=== PATIENT | male | born 1965 | race Hispanic/Latino ===

== ENCOUNTER 2022-01-20 08:50 | Outpatient (CLI) | payer OTHER ==
[2022-01-20 09:36] LABS: Hemoglobin 14.2 g/dL (13.5-17.5); Mean Corpuscular HGB CONC 33.2 g/dL (32.0-36.0); Mean Corpuscular Volume 90.3 fl (81.2-95.1); Mean Platelet Volume 9.4 fl (7.4-10.4); Platelet Count 321 10x3/uL (150-450); RBC Distribution Width 12.3 % (11.5-14.5); Red Blood Cell (RBC) Count 4.74 10x6/uL (4.32-5.72); White Blood Cell (WBC) Count 5.4 10x3/uL (3.5-10.5)
[2022-01-20 09:52] LABS: Anion Gap 12 mmol/L (10-20); BUN (Urea Nitrogen) 19 mg/dL (8.4-25.7); Calc. Creatinine Clearance 0 mL/min (70-130); Calcium 9.7 mg/dL (7.8-10.44); Carbon Dioxide 27 mmol/L (22-29); Chloride 103 mmol/L (98-107); Glucose 106 mg/dL (70-105); Potassium 4.4 mmol/L (3.5-5.1); Sodium 138 mmol/L (136-145)
[2022-01-20 20:47] LABS: SARS-CoV-2 PCR by NAA Not Detected (NotDetected)
== END 2022-01-20 08:51 | disposition home or self-care (01) ==
LOC: LABBT 08:50
PROVIDERS: ATTEND Urology
DX: Z01.818 Encounter for other preprocedural examination (principal); N40.1 Benign prostatic hyperplasia with lower urinary tract symptoms; Z20.822 Contact with and (suspected) exposure to COVID-19
CPT/HCPCS: 80048; 85027; 93005; 93010; U0003; U0005

== ENCOUNTER 2022-01-25 06:44 | Day surgery (SDC) | payer OTHER ==
[2022-01-24 10:28] VITALS: BMI 20.6
[2022-01-25] MEDS ORDERED: Midazolam HCl 2 mg/2 ml Vial ONE (08:17)
[2022-01-25] MEDS ORDERED: Famotidine/PF 20 mg/2ml Vial ONE (08:18)
[2022-01-25] MEDS ORDERED: HYDROmorphone 0.5 MG/0.5 ML SYRINGE ONE (08:18)
[2022-01-25] MEDS ORDERED: Levofloxacin 500 mg/D5W 100 ml Premix Bag ONE (08:20)
[2022-01-25] MEDS ORDERED: Ondansetron PF 4 MG/2 ML Vial ONE (08:29)
[2022-01-25] MEDS ORDERED: ePHEDrine 50 MG/ML VIAL ONE (08:29)
[2022-01-25] MEDS ORDERED: Dexamethasone 20 MG/5 ML VIAL ONE (08:29)
[2022-01-25] MEDS ORDERED: Lidocaine 1% PF 5 ML VIAL ONE (08:29)
[2022-01-25] MEDS ORDERED: PROPOFOL 200 MG/20 ML VIAL ONE (08:29)
[2022-01-25] MEDS ORDERED: Oxybutynin 5 MG TAB ONE (10:15)
[2022-01-25] MEDS ORDERED: Phenazopyridine HCl 100 MG TAB ONE (10:15)
[2022-01-25] MEDS ORDERED: Ketorolac Tromethamine 30 MG/ML VIAL ONE (10:15)
== END 2022-01-25 12:35 | disposition home or self-care (01) ==
LOC: SDC 06:44
PROVIDERS: ATTEND Urology
PROC: 0VT08ZZ Resection of Prostate, Via Natural or Artificial Opening Endoscopic (ICD-10-PCS; principal; 2022-01-25)
DX: N40.1 Benign prostatic hyperplasia with lower urinary tract symptoms (principal); N41.0 Acute prostatitis; N41.1 Chronic prostatitis; N42.89 Other specified disorders of prostate; N13.8 Other obstructive and reflux uropathy; R33.8 Other retention of urine; R39.12 Poor urinary stream; Z79.899 Other long term (current) drug therapy; Z91.018 Allergy to other foods
CPT/HCPCS: 88305; J1100; J1170; J1885; J1956; J2250; J2405; J2704; J3490; S0028